=== PATIENT | male | born 1950 | race Caucasian/White ===

== ENCOUNTER 2018-06-07 01:55 | Inpatient (IN) | payer MEDICARE, OTHER ==
--- NOTE | 2018-06-06 13:17 | LEVENE H&P ---
DATE OF ADMISSION: June 07, 2018 IDENTIFICATION/CHIEF COMPLAINT The patient is a 67]-year-old gentleman with chief complaint of left hip pain. HISTORY OF PRESENT ILLNESS Patient has a longstanding history of left hip arthritis progressively painful and debilitating, refractory to conservative care. Surgery is indicated to relieve pain after failure of nonoperative measures. DICTATION ENDED MTDD
[~2018-06-07] VITALS: Ht 177.8 cm; Wt 108.4 kg
[2018-06-07] VITALS (23 sets, daily range): BP systolic 85–145; BP diastolic 57–95
[~2018-06-07 01:55] MED LIST: ACE325 PO; DEXL30CA5 PO; HYDR-2966 PO; LISI-362 PO; LOR7.5/325 PO; METAMUCIL PO; RIV10 PO; SIMV-49 PO; SIMV10TA96 PO
[2018-06-07] MEDS ORDERED: METOCLOPRAMIDE 10 MG/2 ML SDV ONE (08:06)
[2018-06-07] MEDS ORDERED: DEXAMETHASONE SOD 4 MG/ML VIAL ONE (08:06)
[2018-06-07] MEDS ORDERED: ONDANSETRON 4 MG/2 ML VIAL ONE (08:06)
[2018-06-07] MEDS ORDERED: PROPOFOL EMUL(*) 10MG/ML 20 ML 20 ML ONE (08:06)
[2018-06-07] MEDS ORDERED: LIDOCAINE MPF 1% 5 ML VIAL ONE (08:06)
[2018-06-07] MEDS: NORMOSOL R SOLN(*) 1000 ML BAG 1,000 ML IV PRN ×2 (09:58→15:49)
[2018-06-07] MEDS ORDERED: ceFAZolin(*) 2GM/D5W 50ML 50 ML IVPB ONE (10:15)
[2018-06-07] MEDS ORDERED: CELECOXIB 200 MG CAP PO ONE (10:15)
[2018-06-07] MEDS ORDERED: MIDAZOLAM 2 MG/2 ML VIAL IVP PRN (10:15)
[2018-06-07] MEDS ORDERED: ACETAMINOPHEN 500 MG TAB PO ONE (10:15)
[2018-06-07] MEDS ORDERED: PREGABALIN 150 MG CAPSULE PO ONE (10:15)
[2018-06-07] MEDS ORDERED: LIDOCAINE/SOD BICARB 8.4% SYR ID ONE (10:15)
[2018-06-07] MEDS ORDERED: FAMOTIDINE 20 MG TAB PO ONE (10:15)
[2018-06-07] MEDS ORDERED: TRANEXAMIC AC 1000 MG/10ML SDV 1,000 MG in DEXTROSE 5% 50 ML BAG 50 ML IV ONE (10:15)
[2018-06-07] MEDS ORDERED: cloNIDine EPIDUR INJ 100MCG/ML 40 MCG, ROPIVACAINE 0.5% 20 ML VIAL 25 ML, EPINEPHrine H... INJ ONE (10:15)
[2018-06-07] MEDS ORDERED: fentaNYL CITR 100 MCG/2 ML AMP ONE (10:34)
[2018-06-07] MEDS ORDERED: NS(*) 0.9% 250 ML BAG 250 ML ONE (12:13)
[2018-06-07] MEDS ORDERED: PHENYLEPHRINE 10 MG/1 ML VIAL ONE (12:36)
--- NOTE | 2018-06-07 12:39 | LEVENE H&P ---
DATE OF ADMISSION: June 07, 2018 IDENTIFICATION/CHIEF COMPLAINT The patient is a 67-year-old gentleman with a chief complaint of left hip pain. HISTORY OF PRESENT ILLNESS The patient has a longstanding history of hip arthritis, progressively pain and debilitating, refractory to conservative care. Surgery is indicated to relieve pain after failure of nonoperative measures. PAST MEDICAL HISTORY Hypertension. PAST SURGICAL HISTORY 1. Hernial repair. 2. Contralateral hip replacement. 3. Endoscopy. ALLERGIES No known drug allergies. CURRENT MEDICATIONS 1. Hydrochlorothiazide 17.5 mg p.o. q day. 2. Lisinopril 10 mg p.o. q day. 3. Simvastatin 10 mg p.o. q day. FAMILY HISTORY Non-contributory. SOCIAL HISTORY Negative for tobacco and alcohol use. REVIEW OF SYSTEMS Notable for a remote history of depression, enlarged prostate and Bonds's esophagus. PHYSICAL EXAMINATION GENERAL: This is a healthy male. HEENT: Normocephalic, atraumatic. Extraocular muscles intact. NECK: Supple, non-tender. LUNGS: Clear to auscultation bilaterally. HEART: Regular rate and rhythm. ABDOMEN: Benign. BACK: Non-tender without deformity. ORTHOPEDIC EXAMINATION He is about 1 cm short in the left lower extremity. His hip is extremely stiff and painful with limits of rotation. Hip girdle strength is normal. Skin is intact. Calf is nontender. Neurovascular function is intact. RADIOGRAPHS Reviewed demonstrating endstage hip arthritis. ASSESSMENT Left hip degenerative joint disease refractory to conservative care. PLAN At the patient request, we are going to proceed with total hip replacement. The nature of the procedure, the risks, benefits, the anticipated rehabilitative course were reviewed. Risks include but are not limited to , major medical or anesthetic complication, infection, neurovascular injury, stiffness, scarring, fracture, tendon rupture, instability, leg length discrepancy, implant loosening, migration or failure, blood transfusion, re-tear, progressive arthritis, persistent or recurrent pain or symptoms, need for additional surgery and other unforeseen. He understands and wishes to proceed. A signed permit is placed in the chart. No guarantees are given or implied. [facility]
[2018-06-07] MEDS ORDERED: ZOLPIDEM TARTRATE 5 MG TAB PO PRN (14:40)
[2018-06-07] MEDS ORDERED: FLUSH 10 ML SYR IVP PRN (14:40)
[2018-06-07] MEDS ORDERED: DIAZEPAM 5 MG TAB PO PRN (14:40)
[2018-06-07] MEDS ORDERED: BISACODYL 10 MG SUPP PR PRN (14:40)
[2018-06-07] MEDS ORDERED: BENZOCAINE/MENTHOL 1 EACH LOZG PO PRN (14:40)
[2018-06-07] MEDS ORDERED: PROMETHAZINE 25 MG/ML 1 ML AMP IVP PRN (14:40)
[2018-06-07] MEDS ORDERED: NORMOSOL R SOLN(*) 1000 ML BAG 1,000 ML IV PRN (14:40)
[2018-06-07] MEDS ORDERED: diphenhydrAMINE 50 MG/ML VIAL IVP PRN (14:40)
[2018-06-07] MEDS ORDERED: MAGNESIUM HYDROXIDE* 30ML UDCP PO PRN (14:40)
[2018-06-07] MEDS ORDERED: diphenhydrAMINE 25 MG CAP PO PRN (14:40)
[2018-06-07] MEDS ORDERED: ACETAMINOPHEN 325 MG TAB PO PRN (14:40)
--- NOTE | 2018-06-07 15:50 | Hospitalist Consultation ---
History of Present Illness Requesting Physician Dr. Zazueta Reason for Consult Medical Management Chief Complaint s/p left hip replacement History of Present Illness He was admitted s/p left hip replacement. It is reported the surgery went well and without complication. History Problems: (1) Hypertension Status: Chronic (2) Hyperlipidemia Status: Chronic (3) GERD (gastroesophageal reflux disease) Status: Chronic Home Meds Reported Medications Simvastatin (ZOCOR) 10 Mg Tablet, 10 MG PO HS, TAB 06/01/18 Lisinopril (LISINOPRIL) 10 Mg Tablet, 10 MG PO QDAY, TAB 06/01/18 Hydrochlorothiazide (HYDROCHLOROTHIAZIDE) 25 Mg Tablet, 0.5 TAB PO QDAY, TAB 06/01/18 Acetaminophen (Tylenol) 325 Mg Tab, 650 MG PO Q4H PRN 10/07/12 [Metamucil] No Conflict Check, PO PRN 09/28/12 Discontinued Reported Medications Rivaroxaban (XARELTO) 10 Mg Tablet, 10 MG PO QDAY 10/07/12 Acetaminophen/Hydrocodone (Lortab 7.5/325 Mg) 7.5 Mg/325 Mg Tab, 1 - 2 TAB PO Q4-6H PRN, #40 1 Refill 10/07/12 Dexlansoprazole (Dexilant) 30 Mg Cap., 30 MG PO QAM 09/28/12 Allergies: Coded Allergies: No Known Drug Allergies (Unverified , 09/28/12) Hx Smoking: Yes (QUIT 40 YEARS AGO) Smoking Status: Former Smoker Caffeine Intake: Coffee Caffeine/Cups Per Day: 5-6 CUPS/DAY Hx Alcohol Use: No Hx Substance Use Disorder: No Review of Systems All Systems Reviewed/Normal: Yes, Except as Noted Exam Vital Signs Vital Signs Date Time Temp Pulse Resp B/P (MAP) Pulse Ox O2 Delivery O2 Flow Rate FiO2 06/07/18 15:30 91 12 93 06/07/18 10:35 97.8 134/95 (108) Room Air General Appearance: Alert, Awake, No Acute Distress, Afebrile Neuro: No Gross deficits Cardiovascular: Regular Rate and Rhythm Respiratory: No Respiratory Distress, Clear to Auscultation Psych: Alert & Oriented X3, Appropriate Mood & Affect Assessment and Plan Problems: (1) Status post left hip replacement Status: Acute Assessment & Plan: Followed by Dr. Zazueta. He will be placed on Aspirin for VTE prophylaxis. He has no history of DVT or PE. (2) Hypertension Status: Chronic Assessment & Plan: He is on chronic treatment with Lisinopril and Hydrochlorothiazide. Both medications have been restarted with hold parameters. (3) Hyperlipidemia Status: Chronic Assessment & Plan: He is on chronic treatment with Simvastatin. (4) GERD (gastroesophageal reflux disease) Status: Chronic Assessment & Plan: He is on chronic treatment with Omeprazole. He will be placed on Protonix during admission. Venous Thromboembolism Antithrombotics Is Pt On Any Antithrombotics?: No Problem Qualifiers (1) Hypertension: Hypertension type: essential hypertension Qualified Codes: I10 - Essential (primary) hypertension BO SUTTON LABOR AND DELIVERY NURSE Jun 07, 2018 15:50
--- NOTE | 2018-06-07 15:54 | RADIOLOGY IMAGING REPORT ---
FACILITY: [facility] PATIENT NAME: Jhonatan Martinez : 1950 MR: [id number] V: [id number] EXAM DATE: ORDERING PHYSICIAN: OSKAR ORTIZ TECHNOLOGIST: Location: [facility] [place] Patient: Jhonatan Martinez : 1950 Visit/Account:[id number] Date of Sevice: 06/07/2018 Exam type: PELVIS History: S/P TOTAL HIP ARTHROPLASTY, LEFT Comparison: October 04, 2012. Findings: There is a left hip arthroplasty that appears in good anatomic alignment on this single AP view. Pre viously noted right hip arthroplasty is again noted. De La Cruz catheter is incidentally noted in the pel vis IMPRESSION: 1. As above Report Dictated By: Vielka Billings MD at 06/07/2018 3:48 PM Report E-Signed By: Vielka Billings MD at 06/07/2018 3:49 PM WSN:[id number]
--- NOTE | 2018-06-07 16:00 | HISTORY AND PHYSICAL ---
DATE OF ADMISSION: June 07, 2018 CHIEF COMPLAINT Jhonatan is a 67-year-old gentleman with the chief complaint of left hip pain. HISTORY OF PRESENT ILLNESS Patient has a long-standing history of hip arthritis, progressively painful and debilitating, refractory to conservative care. Surgery is indicated to relieve symptoms after failure of nonoperative measures. PAST MEDICAL HISTORY 1. Hypertension, controlled on medication. 2. Hypercholesterolemia. ALLERGIES He has no known drug allergies. CURRENT MEDICATIONS 1. Hydrochlorothiazide 17.5 mg p.o. q. day. 2. Lisinopril 10 mg p.o. q. day. 3. Simvastatin 10 mg p.o. q. day. PAST SURGICAL HISTORY 1. Contralateral hip replacement. 2. Hernia repair. FAMILY HISTORY Noncontributory. SOCIAL HISTORY Negative for tobacco and alcohol use. REVIEW OF SYSTEMS Notable for enlarged prostate. PHYSICAL EXAMINATION GENERAL: He is a healthy male. HEENT: He is normocephalic, atraumatic. NECK: Supple. LUNGS: Clear. HEART: Regular. ABDOMEN: Soft. ORTHOPEDIC: Left hip is extremely stiff. He has pain limits with combined flexion and rotation. Hip girdle strength is normal. Skin over it is intact. Calves nontender. Neurovascular function intact. RADIOGRAPHS Demonstrate end-stage hip arthritis. ASSESSMENT Left hip end-stage degenerative joint disease, progressively painful and debilitating, refractory to conservative care. PLAN Per patient request, going to proceed with total hip arthroplasty. Nature of the procedure, risks, benefits, and anticipated rehab course reviewed. Risks include, but are not limited to , major medical or anesthetic complications, infection, neurovascular injury, blood transfusions, stiffness, scarring, fracture, tendon rupture, instability, implant loosening or migration with failure, leg length discrepancy, need for additional surgery, and other unforeseen. He understands and wishes to proceed. Signed permit is placed in the chart. No guarantees were given or implied. AGUST[facility]N
[2018-06-07] MEDS: CELECOXIB 200 MG CAP PO SCH (17:50)
[2018-06-07] MEDS: SIMVASTATIN 20 MG TAB PO SCH (20:20)
[2018-06-07] MEDS: ceFAZolin(*) 1 GM VIAL 1 GM in NS(*) 0.9% 100 ML ADDVANT BAG 100 ML IVPB SCH (20:21)
--- NOTE | 2018-06-07 20:22 | LEVENE THA ---
EVENT DATE: June 07, 2018 SURGEON: Edwin Zazueta MD ANESTHESIA: General plus spinal INCINERATOR PLANT SUPERVISOR: AVANI Holland PREOPERATIVE DIAGNOSIS Left hip degenerative joint disease (DJD). POSTOPERATIVE DIAGNOSIS Left hip degenerative joint disease (DJD). PROCEDURE PERFORMED Left total hip arthroplasty. ESTIMATED BLOOD LOSS 300 mL. DRAINS None. SPECIMENS None. COMPLICATIONS None apparent. IMPLANTS Nima System Secur-Fit Max 132 degree neck angle hip stem,size 11, Biolox Delta ceramic C-Taper femoral head, -2.5, Trident PSLA Cluster Acetabular Shell size 54 with a standard 0 degree poly liner. INDICATIONS Jhonatan has intractable pain related to end-stage hip arthritis. Surgery is indicated to relieve symptoms after failure of nonoperative measures. DESCRIPTION OF PROCEDURE The patient was taken to the operating room and placed supine on the operating table. Spinal block was administered by the anesthesiologist. General anesthesia was induced and antibiotic administered IV. The patient was positioned in the right lateral decubitus position on a well-padded peg board with the pelvis secured in a vertical position. All bony prominences and superficial nerves were well padded. The left hip girdle and lower extremity were prepped and draped in the usual sterile fashion for orthopedic surgery. Posterior lateral incision was made and carried down to the skin and subcutaneous to the deep fascia. The fascia was incised over the trochanter and extended distally in line with the femur and proximally in line with the neri fibers. The neri fibers were split bluntly. Trochanteric bursa was excised. The interval between the abductor and external rotator was identified. The abductor mechanism was protected with a blunt Hohmann. A tenotomy/capsulotomy was made with a horizontal limb just above the piriformis. The external rotators and capsule were then peeled off the posterior lateral femur. The femoral head was dislocated. End-stage arthritic changes were needed. A 1.5 cm neck cut was made, consistent with preoperative templating. The femoral head was extracted. Femur was translocated anteriorly. Periacetabular retractors were placed with tips down on bone. The gluteus tendon was released to facilitate mobilization and exposure. The labrum and pulvinar were excised. A 44 mm reamer was used to medialize. The medial wall of the acetabulum was expanded in 2 mm increments up to 54, where good rim contact is obtained. Trial 54 has nice xceg-en-jjet fit. 55 is used to open the acetabulum, reduce fracture risks and accommodate the ridge rim liner. The actual shell was impacted in approximately 40 degree of lateral opening and 20 degrees of anteversion using the transverse acetabular ligament, extracorporal guide and internal bony landmarks to guide socket placement. Rock solid fixation was achieved and no adjuvant fixation therapy was felt to be necessary. At this point, an extensive debridement of osteophytes was performed with an osteotome and rongeur to remove large inferior and anterior osteophytes to prevent impingement. The shell was allowed to dry and the actual liner was locked into the shell. Femoral preparation consisted of cutting the superior neck with a cookie-cutter. Charnley awl was used to find the canal and tapered reaming was performed up to 11, where nice endosteal contact is obtained. Broaching starts at 9 and works up to 11 following the [place] anteversion of the calcar at about 15 degrees, taking care to lateralize to avoid varus stem position. The 11 broach has nice solid fit and fill. Trial reduction performed. Optimal advent of limb length and stability are achievable with the stem. Broach was extracted. The actual stem was seated. Various trial neck lengths were tried. -2.5 was felt to be optimal for advent, soft tissue tension, stability and limb length. Ferrer taper was lavaged and dried and the actual head was impacted onto the Ferrer taper. The joint was reduced. Capsule was repaired anatomically with the previously placed #2 Vicryl through drill holes in the posterior lateral femur. The deep fascia was closed with #2 Ethibond distally, #2 Vicryl proximally. The subcutaneous was lavaged. Hemostasis was assured. Dermis was closed with 3-0 Vicryl and the skin with surgical matias. Xeroform was applied followed by a dry sterile dressing. The patient was rolled supine and an abduction pillow was placed. The patient was awakened from anesthesia and taken to recovery room in stable condition, having tolerated the procedure well. The plan is for a standard JEREMÍAS rehab protocol. [facility]
[2018-06-08] VITALS (8 sets, daily range): BP systolic 93–164; BP diastolic 60–96; Ht 177.8 cm; Wt 108.4 kg
[2018-06-08] MEDS: APAP/HYDROCODONE 325/7.5 TAB PO PRN ×3 (02:14→12:32)
[2018-06-08] MEDS: ceFAZolin(*) 1 GM VIAL 1 GM in NS(*) 0.9% 100 ML ADDVANT BAG 100 ML IVPB SCH ×2 (05:22→12:35)
[2018-06-08] MEDS: CELECOXIB 200 MG CAP PO SCH ×2 (08:15→17:39)
[2018-06-08] MEDS: LISINOPRIL 10 MG TAB PO SCH (08:15)
[2018-06-08] MEDS: ASPIRIN 325 MG TAB PO SCH (08:15)
[2018-06-08] MEDS: PANTOPRAZOLE SOD 20 MG TABEC PO SCH (08:15)
[2018-06-08] MEDS: HYDROCHLOROTHIAZIDE 25 MG TAB PO SCH (08:15)
--- NOTE | 2018-06-08 08:27 | Hospitalist Progress Note ---
Subjective Progress Notes Subjective He has no complaints this morning. He had no acute events overnight. Patient Complains of: Cardiovascular: No: Chest Pain Respiratory: No: Shortness of Breath Physical Exam Vital Signs Date Time Temp Pulse Resp B/P (MAP) Pulse Ox O2 Delivery O2 Flow Rate FiO2 06/08/18 07:30 90 Room Air 06/08/18 07:27 97.7 74 16 109/75 (86) 06/08/18 05:17 1.0 Intake and Output 06/08/18 07:00 Intake Total 5164 ml Output Total 1875 ml Balance 3289 ml Intake Oral 2260 ml IV Total 2904 ml Output Urine Total 1875 ml General Appearance: Alert, Awake, No Acute Distress, Afebrile Neuro: No Gross deficits Cardiovascular: Regular Rate and Rhythm Respiratory: No Respiratory Distress, Clear to Auscultation Psych: Alert & Oriented X3, Appropriate Mood & Affect Assessment and Plan Problems: (1) Status post left hip replacement Status: Acute Assessment & Plan: Followed by Dr. Zazueta. He will be placed on Aspirin for VTE prophylaxis. He has no history of DVT or PE. (2) Hypertension Status: Chronic Assessment & Plan: He is on chronic treatment with Lisinopril and Hydrochlorothiazide. Both medications have been restarted with hold parameters. (3) Hyperlipidemia Status: Chronic Assessment & Plan: He is on chronic treatment with Simvastatin. (4) GERD (gastroesophageal reflux disease) Status: Chronic Assessment & Plan: He is on chronic treatment with Omeprazole. He will be placed on Protonix during admission. Exam Sepsis Risk: No Definite Risk Problem Qualifiers (1) Hypertension: Hypertension type: essential hypertension Qualified Codes: I10 - Essential (primary) hypertension BO SUTTON HAIR SPRING WINDER Jun 08, 2018 08:27
[2018-06-08] MEDS ORDERED: BISACODYL 10 MG SUPP PR ONE (16:35)
[2018-06-08] MEDS: SIMVASTATIN 20 MG TAB PO SCH (21:01)
[2018-06-09] VITALS (7 sets, daily range): BP systolic 118–140; BP diastolic 80–91
[2018-06-09] MEDS: APAP/HYDROCODONE 325/7.5 TAB PO PRN ×4 (00:32→15:02)
[2018-06-09] MEDS ORDERED: HYPROMELLOSE 0.4% LUB 15ML BTL OU PRN (07:55)
[2018-06-09] MEDS: ASPIRIN 325 MG TAB PO SCH (08:11)
[2018-06-09] MEDS: CELECOXIB 200 MG CAP PO SCH ×2 (08:11→16:59)
[2018-06-09] MEDS: LISINOPRIL 10 MG TAB PO SCH (08:11)
[2018-06-09] MEDS: HYDROCHLOROTHIAZIDE 25 MG TAB PO SCH (08:11)
[2018-06-09] MEDS: PANTOPRAZOLE SOD 20 MG TABEC PO SCH (08:11)
[2018-06-09] MEDS ORDERED: TAMSULOSIN HCL 0.4 MG CAP PO SCH (09:00)
--- NOTE | 2018-06-09 10:04 | Hospitalist Progress Note ---
Subjective Progress Notes Subjective He has been having difficulty with urination. He has required intermittent catheterization. He also has no had a bowel movement and feels bloated. Patient Complains of: Cardiovascular: No: Chest Pain Respiratory: No: Shortness of Breath Gastrointestinal: No Bowel Movement Physical Exam Vital Signs Date Time Temp Pulse Resp B/P (MAP) Pulse Ox O2 Delivery O2 Flow Rate FiO2 06/09/18 08:08 91 Nasal Cannula 1.0 06/09/18 07:29 98.1 82 18 133/82 (99) Intake and Output 06/09/18 07:00 Intake Total 3809 ml Output Total 2825 ml Balance 984 ml Intake Oral 3700 ml IV Total 109 ml Output Urine Total 2825 ml # Bowel Movements 3 General Appearance: Alert, Awake, No Acute Distress, Afebrile Neuro: No Gross deficits Cardiovascular: Regular Rate and Rhythm Respiratory: No Respiratory Distress, Clear to Auscultation Psych: Alert & Oriented X3, Appropriate Mood & Affect Assessment and Plan Problems: (1) Status post left hip replacement Status: Acute Assessment & Plan: Followed by Dr. Zazueta. He will be placed on Aspirin for VTE prophylaxis. He has no history of DVT or PE. (2) Hypertension Status: Chronic Assessment & Plan: He is on chronic treatment with Lisinopril and Hydrochlorothiazide. Both medications have been restarted with hold parameters. (3) Hyperlipidemia Status: Chronic Assessment & Plan: He is on chronic treatment with Simvastatin. (4) GERD (gastroesophageal reflux disease) Status: Chronic Assessment & Plan: He is on chronic treatment with Omeprazole. He will be placed on Protonix during admission. (5) Urinary retention Status: Acute Assessment & Plan: He will be started on Flomax. Continue to monitor. Exam Sepsis Risk: No Definite Risk Problem Qualifiers (1) Hypertension: Hypertension type: essential hypertension Qualified Codes: I10 - Essential (primary) hypertension BO SUTTON SECURITY THREAT ANALYST Jun 09, 2018 10:04
[2018-06-09] MEDS: SIMVASTATIN 20 MG TAB PO SCH (21:26)
[2018-06-10 01:58] VITALS: BP 130/90
[2018-06-10] MEDS ORDERED: HYDR-4308 PO (07:27)
[2018-06-10 07:36] VITALS: BP 129/79
[2018-06-10] MEDS ORDERED: ASPI-757 PO (08:00)
[2018-06-10] MEDS ORDERED: TAMS0.4C70 PO (08:00)
[2018-06-10] MEDS: PANTOPRAZOLE SOD 20 MG TABEC PO SCH (08:33)
[2018-06-10] MEDS: CELECOXIB 200 MG CAP PO SCH (08:33)
[2018-06-10] MEDS: ASPIRIN 325 MG TAB PO SCH (08:33)
[2018-06-10] MEDS: HYDROCHLOROTHIAZIDE 25 MG TAB PO SCH (08:37)
[2018-06-10] MEDS: LISINOPRIL 10 MG TAB PO SCH (08:38)
--- NOTE | 2018-06-10 08:58 | Hospitalist Progress Note ---
Subjective Progress Notes Subjective Patient still having difficulty urinating. He has required catheterization every six hours. Patient Complains of: Cardiovascular: No: Chest Pain Respiratory: No: Shortness of Breath Physical Exam Vital Signs Date Time Temp Pulse Resp B/P (MAP) Pulse Ox O2 Delivery O2 Flow Rate FiO2 06/10/18 07:36 97.8 83 16 129/79 (96) 93 Nasal Cannula 1.0 Intake and Output 06/10/18 07:00 Intake Total 1740 ml Output Total 2300 ml Balance -560 ml Intake Oral 1740 ml Output Urine Total 2300 ml # Voids 1 # Bowel Movements 5 General Appearance: Alert, Awake, No Acute Distress, Afebrile Neuro: No Gross deficits Cardiovascular: Regular Rate and Rhythm Respiratory: No Respiratory Distress, Clear to Auscultation GI: Other (abdomen distended, hard to palpation) : Other Psych: Alert & Oriented X3 Assessment and Plan Problems: (1) Status post left hip replacement Status: Acute Assessment & Plan: Followed by Dr. Zazueta. He will be placed on Aspirin for VTE prophylaxis. He has no history of DVT or PE. (2) Hypertension Status: Chronic Assessment & Plan: He is on chronic treatment with Lisinopril and Hydrochlorothiazide. Both medications have been restarted with hold parameters. (3) Hyperlipidemia Status: Chronic Assessment & Plan: He is on chronic treatment with Simvastatin. (4) GERD (gastroesophageal reflux disease) Status: Chronic Assessment & Plan: He is on chronic treatment with Omeprazole. He will be placed on Protonix during admission. (5) Urinary retention Status: Acute Assessment & Plan: He was started on Flomax. Likely BPH. He has required intermittent catheterization. Continue to monitor today. He may need to discharge with De La Cruz. He has appointment with Urology in Wednesday. Exam Sepsis Risk: No Definite Risk Problem Qualifiers (1) Hypertension: Hypertension type: essential hypertension Qualified Codes: I10 - Essential (primary) hypertension BO SUTTONP Jun 10, 2018 08:58
[2018-06-10] MEDS ORDERED: TAMSULOSIN HCL 0.4 MG CAP PO SCH (09:00)
[2018-06-10 12:01] VITALS: BP 137/88
== END 2018-06-10 17:15 | disposition home or self-care (01) | DRG 470 ==
LOC: OR 01:55 → MED 15:40 → OBSVTOIN 15:40
PROVIDERS: ADMIT Orthopaedic Surgery; ATTEND Orthopaedic Surgery
PROC: 0SRB04Z Replacement of Left Hip Joint with Ceramic on Polyethylene Synthetic Substitute, Open Approach (ICD-10-PCS; principal; 2018-06-07 12:19)
DX: M16.12 Unilateral primary osteoarthritis, left hip (principal); I10 Essential (primary) hypertension; E78.5 Hyperlipidemia, unspecified; K21.9 Gastro-esophageal reflux disease without esophagitis; R33.9 Retention of urine, unspecified; Z96.641 Presence of right artificial hip joint; Z87.891 Personal history of nicotine dependence
CPT/HCPCS: 36415; 72170; 85610; 86850; 86900; 86901; 97161; 97165; C1776; J0171; J0690; J0735; J1100; J1885; J2001; J2250; J2370; J2405; J2704; J2765; J2795; J3010; J7050; J7060